=== PATIENT | female | born 1955 | race Caucasian/White ===

== ENCOUNTER → 2016-05-10 | Outpatient (CLI) | payer OTHER ==
[~2016-05-10] MED LIST: THROMBIN (RECOMBINANT) 5,000 UNIT VIAL TP ONE
--- NOTE | 2016-05-10 14:18 | MA ---
Diagnostic Digital Mammogram Left Breast Reason for examination: Follow up sonographically guided left breast biopsy. Technique: Craniocaudal and true lateral views were obtained. Additionally, oblique tomosynthesis is performed. Findings: The Suros marker is deployed at the biopsy site in the anterior left breast. The heterogene ous glandular tissue which is present posteriorly is well evaluated tomographically with no discrete mass identified. This region should be reevaluated with repeat mammographic in 6 months and the mammo graphic followup could also be employed for biopsy site followup. Impression: The Suros marker is deployed at the biopsy site. Follow up is recommended as detailed above. A verbal report was given to the patient. We will await pathologic results.
--- NOTE | 2016-05-11 07:49 | US ---
Vacuum-assisted Ultrasound-Guided Core Biopsy of the Left Breast Reason for examination: Evaluate hypoechoic hyperechoic nodular area at the 10 o'clock position of th e left breast anteriorly. Crosscutting Measure #226: Current tobacco user: no. Technique: Informed consent was obtained. Following sterile preparation and local anesthesia and util izing vacuum assistance and sonographic guidance, a 9 gauge Suros needle was advanced into the lesion . Multiple large core biopsies were obtained. The biopsy was performed with continuous real time sono graphic monitoring. A Suros marker was deployed to bennett the biopsy site. The needle was removed and hemostasis was obtained with manual compression. The patient tolerated the procedure well and no immediate complications occurred. A post biopsy mammogram will be obtained to evaluate marker deployment. Discharge instructions were given by the Radiology nurse. Impression: Successful sonographically guided large core biopsy of heterogeneous hyperechoic left dayanna ast nodule. Material was sent to Pathology. We will await results.
== END ==
LOC: FIMAGING 11:28
PROVIDERS: ATTEND Internal Medicine
PROC: 0HBU3ZX Excision of Left Breast, Percutaneous Approach, Diagnostic (ICD-10-PCS; principal; 2016-05-10)
DX: N60.12 Diffuse cystic mastopathy of left breast (principal); R92.0 Mammographic microcalcification found on diagnostic imaging of breast
CPT/HCPCS: G0206; G0279

== ENCOUNTER 2016-09-15 15:19 | Emergency (ER) | payer OTHER ==
--- NOTE | 2016-09-15 15:53 | EDPHY ---
H & P Time Seen by Provider: 09/15/16 15:34 HPI/ROS: CHIEF COMPLAINT: "NOT FEELING RIGHT" HISTORY OF PRESENT ILLNESS: Patient is a 61-year-old female with multiple medical problems including fibromyalgia and chronic fatigue syndrome and anxiety who presents to the emergency department with multiple complaints. She states that on Tuesday she ran out of [employer] and was concerned that her symptoms may be secondary to anxiety. On Tuesday she was working in the sun. She got "too hot" and developed a typical migraine headache. Since Tuesday she has had intermittent migraine headaches as well as lightheadedness and dizziness. She denies any chest pain or shortness of breath. She developed nausea on Tuesday and then reports "I waited 3 days to vomit until Tuesday. Patient feels as though she may be developing a headache at this time. She states her headaches are typically on the right and she has had them since 8 years old. Her headache symptoms have been consistent with her previous episodes. She has had no recent head trauma neck pain. She states she has had episodes of feeling too hot as well as dizziness since April. Approximately once a month she has an episode of feeling as though she can't walk in a straight line. She denies any ataxia at this time. No weakness or numbness. No visual change. REVIEW OF SYSTEMS: My complete review of systems is negative except as mentioned in the HPI. Past Medical/Surgical History: Includes insomnia, diabetes, migraine, hypothermia, fibromyalgia, chronic fatigue syndrome, Past surgical history: Includes gallbladder surgery, infertility, endoscopy perforation Social history: The patient does not smoke. She does not use alcohol. Smoking Status: Never smoked Physical Exam: Vitals noted GENERAL: Well-appearing, in no acute distress, alert. HEENT: Eyes normal to inspection, normal pharynx, no signs of dehydration. NECK: No thyromegaly, no lymphadenopathy, supple. RESPIRATORY: Clear to auscultation bilaterally, no rales, rhonchi or wheezing. CVS: Regular rate and rhythm, no rubs, murmurs, or gallops. ABDOMEN: Soft, nontender, nondistended, no organomegaly. BACK: Normal to inspection, no CVA tenderness. SKIN: Normal color, no rash, warm, dry. No pallor. EXTREMITIES: No pedal edema, no calf tenderness, no Homans sign or cords, no joint swelling. NEURO/PSYCH: Higher functions: Alert and Oriented x3. Normal speech and cognition. Normal mood and affect. Cranial nerves: Normal as tested. Cerebellar: Normal as tested. Good finger to nose, good [id number], normal gait. Peripheral exam: Normal motor exam. Normal sensation. Normal reflexes. Constitutional: Initial Vital Signs Temperature (C) 36.4 C 09/15/16 15:20 Heart Rate 70 09/15/16 15:20 Respiratory Rate 20 09/15/16 15:20 Blood Pressure 109/84 H 09/15/16 15:20 O2 Sat (%) 93 09/15/16 15:20 O2 Delivery Mode Room Air Allergies/Adverse Reactions: amoxicillin trihydrate [From Augmentin] Allergy (Intermediate, Verified 16:32) Other-Enter Comments potassium clavula *RETIRED-01/10/12 [From Augmentin] Allergy (Intermediate, Verified 04/29/15 16:32) Other-Enter Comments Home Medications: Medication Instructions Recorded MIGERGOT SUPPOSITORY 05/01/09 ESOMEPRAZOLE MAG TRIHYDRATE mg PO 07/20/10 [Nexium] LEVOTHYROXINE SODIUM [SYNTHROID] 07/20/10 clonAZEPAM [Klonopin] 0.25 mg PO 07/20/10 Zolpidem Tartrate [Ambien 10 mg] 10 mg PO HS 02/17/12 Trazodone HCl 100 mg PO 02/22/12 hydrOXYzine HCL [Hydroxyzine HCl] 25 mg PO 02/22/12 metFORMIN HCL [Glucophage] 500 mg PO DAILY #30 tab 06/04/13 Ranitidine HCl 08/15/14 traMADOL 08/15/14 Atorvastatin Calcium 05/27/15 Duloxetine HCl 05/27/15 Medical Decision Making - Diagnostics Imaging Results: Imaging Impressions Head CT 09/15/16 15:57 Impression: 1. No acute intracranial findings. 2. Scattered nonspecific white matter hypodensities. These are slightly more prominent than expected for age for chronic microvascular ischemic gliosis. These could be related to sequela of migraines, vasculitis, or other etiology. If symptoms persist and clinical suspicion warrants, consider MRI. Findings discussed with Mirian Gonzalez M.D., on September 15, 2016 at 1655 hours. E:NW/amm ED Course/Re-evaluation: In the emergency department I discussed possible etiologies with the patient. I answered all her questions. An IV was placed. Laboratory studies, EKG and head CT were ordered. EKG shows normal sinus rhythm, normal rate, normal axis, normal intervals. There are no ST or T-wave abnormalities. EKG is normal as interpreted by me. Head CT: No acute disease. Please refer the dictated report by Dr. Egan. Reviewed the patient's laboratory studies. Patient had a mildly elevated creatinine and BUN. I compared this with previous values. It is higher than typical. Patient's white count is minimally elevated. She is not anemic. TSH is 2.0. Patient's troponin is negative. I discussed the result with the patient. I answered all her questions. She is given warnings prior to leaving. She will continue to hydrate. She will follow up with the primary care physician in 2 days to have a recheck of her creatinine and labs. She felt comfortable with this plan. She was given warnings prior to leaving. She will return with worsening symptoms. Differential Diagnosis: My differential includes but is not limited to CVA, TIA, electrolyte abnormality , sugar abnormality, ACS, acute SC, chronic fatigue syndrome, fibromyalgia, hypothyroidism - Data Points Laboratory Results: Laboratory Results 09/15/16 16:08 09/15/16 16:08 09/15/16 09/15/16 16:08 16:08 WBC 9.96 10^3/uL H 10^3/uL (3.80-9.50) RBC 4.76 10^6/uL 10^6/uL (4.18-5.33) Hgb 13.5 g/dL g/dL (12.6-16.3) Hct 40.4 % % (38.0-47.0) MCV 84.9 fL fL (81.5-99.8) MCH 28.4 pg pg (27.9-34.1) MCHC 33.4 g/dL g/dL (32.4-36.7) RDW 13.2 % % (11.5-15.2) Plt Count 307 10^3/uL 10^3/uL (150-400) MPV 9.5 fL fL (8.7-11.7) Neut % (Auto) 46.1 % % (39.3-74.2) Lymph % (Auto) 41.6 % % (15.0-45.0) [place] % (Auto) 6.6 % % (4.5-13.0) Eos % (Auto) 4.3 % % (0.6-7.6) Baso % (Auto) 1.2 % % (0.3-1.7) Nucleat RBC Rel Count 0.0 % % (0.0-0.2) Absolute Neuts (auto) 4.59 10^3/uL 10^3/uL (1.70-6.50) Absolute Lymphs (auto) 4.14 10^3/uL H 10^3/uL (1.00-3.00) Absolute Monos (auto) 0.66 10^3/uL 10^3/uL (0.30-0.80) Absolute Eos (auto) 0.43 10^3/uL H 10^3/uL (0.03-0.40) Absolute Basos (auto) 0.12 10^3/uL H 10^3/uL (0.02-0.10) Absolute Nucleated RBC 0.00 10^3/uL 10^3/uL (0-0.01) Immature Gran % 0.2 % % (0.0-1.1) Immature Gran # 0.02 10^3/uL 10^3/uL (0.00-0.10) Sodium 137 mEq/L mEq/L (134-144) Potassium 4.6 mEq/L mEq/L (3.5-5.2) Chloride 104 mEq/L mEq/L (97-110) Carbon Dioxide 20 mEq/l L mEq/l (22-31) Anion Gap 13 mEq/L mEq/L (8-16) BUN 25 mg/dL H mg/dL (7-23) Creatinine 1.5 mg/dL H mg/dL (0.6-1.0) Estimated GFR 35 Glucose 110 mg/dL H mg/dL (70-100) Calcium 10.0 mg/dL mg/dL (8.5-10.4) Troponin I < 0.012 ng/mL ng/mL (0-0.034) TSH 2.000 uIU/mL uIU/mL (0.465-4.680) Departure - Departure Disposition: Home, Routine, Self-Care Clinical Impression: Lightheadedness, Dizziness Condition: Good Instructions: Lightheadedness (ED), Dizziness (ED) Additional Instructions: Return with increasing weakness, dizziness, vomiting, chest pain or any other concerns. You need close follow-up with your primary care physician to recheck her laboratory studies. Referrals: KIRSTIE DEVINE [[facility]] - 1-2 days without fail
--- NOTE | 2016-09-15 16:05 | CPEKG ---
Heart Rate: 69 RR Interval: 870 P-R Interval: 172 QRSD Interval: 76 QT Interval: 392 QTC Interval: 420 P Moriarty: 54 QRS Moriarty: 42 T Wave Moriarty: 40 EKG Severity - NORMAL ECG - EKG Impression: SINUS RHYTHM Electronically Signed By: Mirian Gonzalez 15-Sep-2016 22:57:50
[2016-09-15 16:17] LABS: % IMMATURE GRANULYOCYTES 0.2 % (0.0-1.1); ABSOLUTE IMMATURE GRANULOCYTES 0.02 10^3/uL (0.00-0.10); ADD DIFF? NO; HEMATOCRIT 40.4 % (38.0-47.0); HEMOGLOBIN 13.5 g/dL (12.6-16.3); MEAN CELL HEMOGLOBIN 28.4 pg (27.9-34.1); MEAN CELL HEMOGLOBIN CONCENTR. 33.4 g/dL (32.4-36.7); MEAN CELL VOLUME 84.9 fL (81.5-99.8); MEAN PLATELET VOLUME 9.5 fL (8.7-11.7); PLATELET COUNT 307 10^3/uL (150-400); RED BLOOD CELL COUNT 4.76 10^6/uL (4.18-5.33); RED CELL DISTRIBUTION WIDTH 13.2 % (11.5-15.2)
[2016-09-15 16:18] LABS: ADD MORPH? NO; ADD SCAN? NO; ATYPICAL LYMPHOCYTE FLAG 0 (0-99); FRAGMENT RBC FLAG 0 (0-99); LEFT SHIFT FLG 0 (0-99); LIPEMIA HEMOLYSIS FLAG 80 (0-99); PLATELET CLUMPS FLAG 0 (0-99)
[2016-09-15 16:29] LABS: ANION GAP 13 mEq/L (8-16); CARBON DIOXIDE 20 mEq/l (22-31); CHLORIDE 104 mEq/L (97-110); CREATININE 1.5 mg/dL (0.6-1.0); GLOMERULAR FILTRATION RATE 35; GLUCOSE 110 mg/dL (70-100); POTASSIUM 4.6 mEq/L (3.5-5.2); SODIUM 137 mEq/L (134-144)
[2016-09-15 16:41] LABS: TROPONIN I < 0.012 ng/mL (0-0.034)
[2016-09-15 17:33] VITALS: BP 121/81; PULSE 74; RESP 16; TEMP 98.1; O2SAT 94
== END 2016-09-15 17:34 | disposition home or self-care (01) ==
DX: R42 Dizziness and giddiness (principal); E11.9 Type 2 diabetes mellitus without complications; Z79.84 Long term (current) use of oral hypoglycemic drugs

== ENCOUNTER → 2017-04-11 | Outpatient (CLI) | payer OTHER | LOC: CIMAGING 11:08 | PROVIDERS: ATTEND Internal Medicine | DX: Z12.31 Encounter for screening mammogram for malignant neoplasm of breast (principal) | CPT/HCPCS: G0202 ==

== ENCOUNTER → 2017-08-02 | Outpatient (CLI) | payer OTHER | LOC: BMCIMAGING 12:13 | PROVIDERS: ATTEND Family Medicine | DX: R05 Cough (principal) ==

== ENCOUNTER 2018-03-29 12:51 | Inpatient (IN) | payer OTHER ==
--- NOTE | 2018-03-29 13:38 | EDPHY ---
H & P Smoking Status: Never smoked Time Seen by Provider: 03/29/18 13:00 HPI/ROS: CLINICAL IMPRESSION: Closed left trimalleolar fracture ASSESSMENT/PLAN: This is a 62-year-old female with a history of type 2 diabetes, fibromyalgia, chronic fatigue syndrome, presents to the emergency department after she tripped going [place] and injured her left ankle. X- rays confirm a closed, unstable trimalleolar fracture. Doppler pulses intact, cap refill 2 sec bilaterally, no open wound. No proximal joint pain and x-rays of the knee are without acute abnormality. Patient is requesting surgery today. I discussed with Dr. Wadsworth to is able to address patient's injury this evening. Patient was kept NPO, placed in a 3 way lower extremity splint, and admitted to the hospitalist service given her multiple other comorbidities. Patient to see orthopedics tonight DIFFERENTIAL DX: Differential diagnosis includes but not limited to acute fracture, ankle dislocation, ligamentous injury ED PROCEDURES: Procedure: Splint placement. A posterior short-leg and sugar-tong splint applied to the left leg by facility maintenance technician, supervised by myself. After application of the splint I returned and re- examined the patient. The splint was adequately immobilizing the joint and distal to the splint the patient's circulation and sensation was intact. 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 She reports her foot was point in the opposite direction of her leg when she got up. No open wound. She has severe chronic neuropathy that she reports is unchanged. She states her foot now appears back in place after the area was wrapped by EMS. No prior orthopedic injury or surgery to this leg. She has right knee pain as well but states this feels no different than it always feels. No open wounds. She did not hit her head. 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 Neurological: No sensory loss from baseline PHYSICAL EXAM: General Appearance: Alert, oriented, appropriate for age, cooperative, NAD, well hydrated, non-toxic appearing, VSS, no hypoxia. Neurological: Alert and oriented x 3, normal sensation and strength of extremities Skin: Warm, dry, no rashes, no nodules on palpation. Musculoskeletal: Significant swelling noted to left ankle. Unable to palpate pedal and posterior tibialis pulses bilaterally. Doppler pulses intact, no open wound. Psoriatic lesions noted to left anterior lower leg. Unchanged sensory deficits from baseline MEDICAL DECISION MAKING: Patient was seen independently.Secondary supervising physician at time of evaluation was Dr. Nathan . Diagnosis: Closed unstable left trimalleolar fracture. New, requires workup Summary: See assessment and plan for summary of ED visit Independent visualization of images, tracing, or specimens yes. Discussed patient with another provider Dr. Wadsworth, Dr. Diego Patient Progress stable . (Siva Hernandez) Constitutional: Initial Vital Signs Temperature (C) 36.6 C 03/29/18 12:59 Heart Rate 76 03/29/18 12:59 Respiratory Rate 18 03/29/18 12:59 Blood Pressure 139/82 H 03/29/18 12:59 O2 Sat (%) 97 03/29/18 12:59 O2 Delivery Mode Room Air O2 (L/minute) 3 Allergies/Adverse Reactions: amoxicillin trihydrate [From Augmentin] Allergy (Intermediate, Verified 16:32) Other-Enter Comments potassium clavula *RETIRED-01/10/12 [From Augmentin] Allergy (Intermediate, Verified 04/29/15 16:32) Other-Enter Comments Home Medications: Medication Instructions Recorded DULoxetine [Cymbalta 60 MG (*)] 60 mg PO BID 03/29/18 Ergotamine Tartrate/Caffeine 1 each RC DAILY PRN 03/29/18 [Migergot Suppository] Esomeprazole Magnesium [Nexium] 20 mg PO BID 03/29/18 Gabapentin [Neurontin 100 MG (*)] 200 mg PO BID 03/29/18 Levocetirizine Dihydrochloride 5 mg PO DAILY PRN 03/29/18 [Xyzal] Levothyroxine [Synthroid 75 mcg 75 mcg PO DAILY06 03/29/18 (*)] Nadolol [Nadolol 20 mg (*)] 20 mg PO BID 03/29/18 Pseudoephedrine HCl [Sudafed 12 240 mg PO DAILY PRN 03/29/18 Hour 120mg (*)] Rosuvastatin Calcium [Crestor] 10 mg PO HS 03/29/18 Zolpidem Tartrate [Ambien 5MG (*)] 5 mg PO HS 03/29/18 clonazePAM [Klonopin (*)] 0.5 mg PO BID 03/29/18 hydrOXYzine HCL [Vistaril] 50 mg PO BID 03/29/18 metFORMIN HCL [Metformin HCl ER] 500 mg PO DAILY 03/29/18 traZODone [traZODONE 50MG (*)] 50 mg PO HS 03/29/18 MDM/Departure - MDM Medications Given: Acetaminophen (Tylenol) 650 mg PO Q4HRS PRN PRN Reason: Pain, Mild/Fever, Can Take PO Stop: 09/25/18 14:18 Last Admin: 03/31/18 03:40 Dose: 650 mg Acetaminophen/Aspirin/Caffeine (Excedrin Tablet) 1 each PO Q6HRS PRN PRN Reason: Headache Stop: 09/26/18 13:39 Last Admin: 03/30/18 20:48 Dose: 1 each Clonazepam (Klonopin) 0.5 mg PO BID [facility] Stop: 09/25/18 20:59 Last Admin: 03/31/18 09:03 Dose: 0.5 mg Duloxetine HCl (Cymbalta) 60 mg PO BID [facility] Stop: 09/25/18 20:59 Last Admin: 03/31/18 09:02 Dose: 60 mg Furosemide (Lasix) 40 mg PO DAILY [facility] Stop: 09/26/18 13:59 Last Admin: 03/31/18 09:02 Dose: 40 mg Gabapentin (Neurontin) 200 mg PO BID [facility] Stop: 09/25/18 20:59 Last Admin: 03/31/18 09:02 Dose: 200 mg Hydromorphone HCl (Dilaudid) 0.2 - 0.4 mg IVP Q1H PRN PRN Reason: Pain, Severe Unable to Take PO Stop: 04/08/18 19:50 Last Admin: 03/31/18 06:07 Dose: 0.4 mg Hydroxyzine HCl (Hydroxyzine Hcl) 50 mg PO BID [facility] Stop: 09/25/18 20:59 Last Admin: 03/31/18 09:03 Dose: 50 mg Insulin Human Lispro (Humalog Lispro) 0 unit SC TIDMEAL B[facility]AR PRN Reason: Protocol Stop: 09/25/18 17:59 Last Admin: 03/31/18 13:12 Dose: Not Given Levothyroxine Sodium (Synthroid) 75 mcg PO DAILY06 [facility] Stop: 09/26/18 05:59 Last Admin: 03/31/18 05:24 Dose: 75 mcg Methocarbamol (Robaxin) 750 mg PO QID PRN PRN Reason: muscle spasms Stop: 09/27/18 10:13 Last Admin: 03/31/18 13:24 Dose: 750 mg Nadolol (Nadolol) 20 mg PO BID [facility] Stop: 09/25/18 20:59 Last Admin: 03/31/18 09:03 Dose: 20 mg Oxycodone HCl (Oxycodone Ir) 5 - 10 mg PO Q3HRS PRN PRN Reason: Pain, Severe Able to Take PO Stop: 04/08/18 14:18 Last Admin: 03/31/18 11:54 Dose: 10 mg Pantoprazole Sodium (Protonix) 40 mg PO BID [facility] Stop: 09/25/18 20:59 Last Admin: 03/31/18 09:02 Dose: 40 mg Rosuvastatin Calcium (Crestor) 10 mg PO HS [facility] Stop: 09/25/18 20:59 Last Admin: 03/30/18 20:21 Dose: 10 mg Trazodone HCl (Trazodone) 50 mg PO HS [facility] Stop: 09/25/18 20:59 Last Admin: 03/30/18 20:21 Dose: 50 mg Zolpidem Tartrate (Ambien) 5 mg PO HS [facility] Stop: 09/25/18 20:59 Last Admin: 03/30/18 20:21 Dose: 5 mg Discontinued Medications Albuterol (Proventil Neb) 3 ml IH Q10M PRN PRN Reason: PACU, Wheezing Stop: 03/30/18 01:36 Last Admin: 03/30/18 00:30 Dose: 3 ml Bupivacaine HCl (Sensorcaine 0.5% Vial) Confirm Administered Dose 30 ml .ROUTE .STK-MED ONE Stop: 03/30/18 00:14 Last Admin: 03/30/18 00:15 Dose: 15 ml Hydromorphone HCl (Dilaudid) 0.5 mg IVP EDNOW ONE Stop: 03/29/18 14:00 Last Admin: 03/29/18 14:47 Dose: 0.5 mg Hydromorphone HCl (Dilaudid) 0.2 - 0.4 mg IVP Q4HRS PRN PRN Reason: Pain, Severe Unable to Take PO Stop: 04/08/18 14:18 Last Admin: 03/29/18 18:53 Dose: 0.2 mg Sodium Chloride (Ns) 1,000 mls @ 0 mls/hr IV EDNOW ONE; Wide Open PRN Reason: Protocol Stop: 03/29/18 14:00 Last Admin: 03/29/18 14:47 Dose: 1,000 mls Cefazolin Sodium/Dextrose (Ancef) 100 mls @ 200 mls/hr IV ONCALL ONE PRN Reason: Protocol Stop: 03/29/18 21:09 Last Admin: 03/29/18 22:45 Dose: 100 mls Cefazolin Sodium/Dextrose (Ancef) 100 mls @ 200 mls/hr IV Q8H [facility]AR PRN Reason: Protocol Stop: 03/30/18 15:29 Last Admin: 03/30/18 14:20 Dose: 100 mls Midazolam HCl (Versed) 4 mg IVP ONCALL ONE Stop: 03/29/18 22:51 Last Admin: 03/29/18 22:52 Dose: 4 mg ED Course/Re-evaluation: I did not see this patient while she was in the emergency department. However her care was discussed with the PA while the patient was in the department. I agree with treatment plan and management (Don Nathan) - Depart Disposition: [facility] ([place], [place]) Inpatient Acute Clinical Impression: Trimalleolar fracture of ankle, closed Qualifiers: Encounter type: initial encounter Laterality: left Qualified Code(s): S82.852A - Displaced trimalleolar fracture of left lower leg, initial encounter for closed fracture Condition: Good
[2018-03-29] MEDS ORDERED: HYDROmorphONE/DILAUDID 2 MG/ML INJ IVP ONE (13:59)
[2018-03-29] MEDS ORDERED: NS 1,000 ML IV ONE (13:59)
[2018-03-29] MEDS ORDERED: ONDANSETRON 4 MG/2 ML VIAL IVP PRN (14:19)
[2018-03-29] MEDS ORDERED: ONDANSETRON DISINTEGRATING 4 MG TAB PO PRN (14:19)
[2018-03-29] MEDS ORDERED: PSEUDOEPHEDRINE HCL 120 MG EXT REL TAB PO PRN (15:27)
[2018-03-29] MEDS ORDERED: D50W 25 GM/50 ML SYR IVP PRN (15:47)
--- NOTE | 2018-03-29 15:55 | PDGENHP ---
History and Physical - Chief Complaint fall, ankle pain - History of Present Illness 62yo F with chronic fatigue syndrome, fibromyalgia presents after a mechanical fall. 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 She noticed that her left ankle was pointing in a different direction than the rest of her leg. She was rather shocked but not in that much pain. She denies headstrike or LOC. Upon EMS arrival her ankle was not dislocated. She was brought to the ED where an x-ray showed a trimalleolar fracture. She was splinted in the ED with plans for surgery this evening. She denies drinking any etoh or taking any additional centrally acting medications this morning than normal. Denies any infectious symptoms. However, she is now endorsing some neck and right hip pain. History Information - Allergies/Home Medication List Allergies/Adverse Reactions: amoxicillin trihydrate [From Augmentin] Allergy (Intermediate, Verified 16:32) Other-Enter Comments potassium clavula *RETIRED-01/10/12 [From Augmentin] Allergy (Intermediate, Verified 04/29/15 16:32) Other-Enter Comments Home Medications: DULoxetine [Cymbalta 60 MG (*)] 60 mg PO BID 03/29/18 [Last Taken Unknown] Ergotamine Tartrate/Caffeine [Migergot Suppository] 1 each RC DAILY PRN [Last Taken Unknown] Esomeprazole Magnesium [Nexium] 20 mg PO BID 03/29/18 [Last Taken Unknown] Gabapentin [Neurontin 100 MG (*)] 200 mg PO BID 03/29/18 [Last Taken Unknown] Levocetirizine Dihydrochloride [Xyzal] 5 mg PO DAILY PRN 03/29/18 [Last Taken Unknown] Levothyroxine [Synthroid 75 mcg (*)] 75 mcg PO DAILY06 03/29/18 [Last Taken Unknown] Nadolol [Nadolol 20 mg (*)] 20 mg PO BID 03/29/18 [Last Taken Unknown] Pseudoephedrine HCl [Sudafed 12 Hour 120mg (*)] 240 mg PO DAILY PRN 03/29/18 [ Last Taken Unknown] Rosuvastatin Calcium [Crestor] 10 mg PO HS 03/29/18 [Last Taken Unknown] Zolpidem Tartrate [Ambien 5MG (*)] 5 mg PO HS 03/29/18 [Last Taken 03/28/18] clonazePAM [Klonopin (*)] 0.5 mg PO BID 03/29/18 [Last Taken 03/29/18] hydrOXYzine HCL [Vistaril] 50 mg PO BID 03/29/18 [Last Taken Unknown] metFORMIN HCL [Metformin HCl ER] 500 mg PO DAILY 03/29/18 [Last Taken Unknown] traZODone [traZODONE 50MG (*)] 50 mg PO HS 03/29/18 [Last Taken Unknown] I have personally reviewed and updated: family history, medical history, social history, surgical history - Past Medical History Additional medical history: chronic fatigue syndrome, fibromyalgia, type 2 diabetes (recently taken off metformin due to GI side effects), GERD, insomnia, HLD, depression/anxiety, migraines, chronic neuropathy - Surgical History Additional surgical history: cholecystectomy - Family History Additional family history: strong family history of diabetes, no early CAD - Social History Smoking Status: Never smoked Alcohol Use: None Drug Use: None 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 Review of Systems Review of Systems: ROS: 10pt was reviewed & negative except for what was stated in HPI & below Physical Exam Physical Exam: Temp Pulse Resp BP Pulse Ox 36.3 C 66 19 142/89 H 96 03/29/18 15:11 03/29/18 15:11 03/29/18 15:11 03/29/18 15:11 03/29/18 15:11 Constitutional: no apparent distress, appears nourished, not in pain Eyes: PERRL, anicteric sclera, EOMI Ears, Nose, Mouth, Throat: moist mucous membranes, hearing normal, ears appear normal, no oral mucosal ulcers Cardiovascular: regular rate and rhythym, no murmur, rub, or gallop, No edema Respiratory: no respiratory distress, no rales or rhonchi, clear to auscultation Gastrointestinal: normoactive bowel sounds, soft, non-tender abdomen, no palpable masses Genitourinary: no bladder fullness, no bladder tenderness Skin: warm, normal color, no rashes or abrasions, no fluctuance, no induration, No mottled Musculoskeletal: full muscle strength, other (left ankle splinted, mild tenderness in posterior cervical area) Neurologic: AAOx3 Psychiatric: interacting appropriately, not anxious, not encephalopathic, thought process linear Lab Data & Imaging Review Visualized and Interpreted imaging results: Yes Interpretation: Ankle x-ray: displaced trimalleolar fracture with tibia subluxed anterolaterally, bony fragment along the plantar aspect of midfoot Assessment & Plan Assessment: 62yo F with chronic fatigue syndrome, fibromyalgia presents after a mechanical fall found to have closed trimalleolar fracture. She is being admitted for surgical management and is unable to ambulate. Plan: 1. Left trimalleolar fracture, possible midfoot fracture: Related to traumatic mechanical fall. Currently in splint. - Ortho consulted, planning on surgery with Dr Medrano this evening - IV dilaudid for pain control. Keep on continuous pulse oximetry in navid- operative period given her numerous centrally acting medications - PT/OT 2. Cervical neck pain: Neurologically intact - Check x-ray 3. Type 2 diabetes - Holding metformin, start SSI with regular BG checks 4. Chronic fatigue syndrome, fibromyalgia, neuropathic pain: Continue home duloxetine, gabapentin. 5. Depression, anxiety: Home duloxetine, klonopin PRN. 6. Insomnia: Home ambien. 7. HLD: On statin 8. GERD: On PPI, H2RA 9. Hypothyroid: Continue LT4 VTE ppx: SCDs Diet: NPO Code: full Dispo: Admit under observation for surgical management of ankle fracture.
[2018-03-29] MEDS: INSULIN LISPRO 100 UNIT/ML SC SCH (17:47)
[2018-03-29] MEDS: HYDROmorphONE/DILAUDID 1 MG/ML INJ IVP PRN ×3 (18:09→20:08)
[2018-03-29 18:40] LABS: PLATELET COUNT 410 10^3/uL (150-400)
[2018-03-29] MEDS ORDERED: ceFAZolin 2 GM/DEXTROSE 100 ML IV ONE (20:40)
[2018-03-29] MEDS: DULoxetine 60 MG CAP PO SCH (22:17)
[2018-03-29] MEDS: clonazePAM 0.5 MG TAB PO SCH (22:17)
[2018-03-29] MEDS: GABAPENTIN 100 MG CAP PO SCH (22:17)
[2018-03-29] MEDS: hydrOXYzine HCL 50 MG TAB PO SCH (22:18)
[2018-03-29] MEDS: NADOLOL 20 MG TAB PO SCH (22:19)
[2018-03-29] MEDS: PANTOPRAZOLE SODIUM 40 MG TAB PO SCH (22:19)
[2018-03-29] MEDS: traZODone 50 MG TAB PO SCH (22:20)
[2018-03-29] MEDS: ROSUVASTATIN CALCIUM 10 MG TAB PO SCH (22:20)
[2018-03-29] MEDS: ZOLPIDEM TARTRATE 5 MG TAB PO SCH (22:20)
--- NOTE | 2018-03-29 22:38 | POSTOPPROG ---
Post Op Note Date of Operation: 03/29/18 Surgeon: Abiel Wadsworth Anesthesia: GET(General Endotracheal) Pre-op Diagnosis: L trimalleolar ankle fx Post-op Diagnosis: same Procedure: ORIF L trimalleolar ankle fx Inf/Abcess present in the surg proc area at time of surgery?: No EBL: Minimal
[2018-03-29] MEDS ORDERED: MIDAZOLAM 2 MG/2 ML VIAL ONE ×2 (22:47)
[2018-03-29] MEDS ORDERED: MIDAZOLAM 2 MG/2 ML VIAL IVP ONE (22:50)
--- NOTE | 2018-03-29 22:50 | PDANEPAE ---
ANE History of Present Illness ANKLE ORIF ANE Past Medical History - Cardiovascular History Hx Hypertension: No Hx Arrhythmias: No Hx Chest Pain: No Hx Coronary Artery / Peripheral Vascular Disease: No Hx CHF / Valvular Disease: No Hx Palpitations: No Cardiovascular History Comment: HIGH CHOLESTEROL - Pulmonary History Hx COPD: No Hx Asthma/Reactive Airway Disease: Yes Hx Recent Upper Respiratory Infection: No Hx Oxygen in Use at Home: No Hx Sleep Apnea: No Sleep Apnea Screening Result - Last Documented: Negative Pulmonary History Comment: ALLERGY INDUCED ASTHMA, URI TREATED WITH ABX 12/2014 - Neurologic History Hx Cerebrovascular Accident: No Hx Seizures: No Hx Dementia: No Neurologic History Comment: MIGRANES - Endocrine History Hx Diabetes: Yes Hypothyroid: Yes Hyperthyroid: No Obesity: mild Endocrine History Comment: HYPOTHYROID. DM II - Renal History Hx Renal Disorders: No - Liver History Hx Hepatic Disorders: No Hepatic History Comment: GALLBLADDER DUCT BLOCKAGE - Neurological & Psychiatric Hx Hx Neurological and Psychiatric Disorders: No Neurological / Psychiatric History Comment: HX ANXIETY, DEPRESSION, INSOMNIA - Cancer History Hx Cancer: No Cancer History Comment: EARS BASAL CELL CARCINOMA - Congenital Disorder History Hx Congenital Disorders: No - GI History GERD: mild Hx Gastrointestinal Disorders: No Gastrointestinal History Comment: VOMITING AND NAUSEA. GERD. HX STOMACH & DUODENAL ULCERS. CHRONIC CONSTIPATION/DIARRHEA - Other Health History Other Health History: PSORIASIS. FIBROMYALGIA. CHRONIC FATIGUE SYNDROME - Chronic Pain History Chronic Pain: Yes - Surgical History Prior Surgeries: PERFORATED DUODENUM (FROM ENDOSCOPY). 2 LAP INFERTILITY SURG ANE Review of Systems Review of Systems: - Exercise capacity Exercise capacity: >=4 METS ANE Patient History - Allergies Allergies/Adverse Reactions: amoxicillin trihydrate [From Augmentin] Allergy (Intermediate, Verified 16:32) Other-Enter Comments potassium clavula *RETIRED-01/10/12 [From Augmentin] Allergy (Intermediate, Verified 04/29/15 16:32) Other-Enter Comments - Home Medications Home medications: home medication list seen and reviewed Home Medications: DULoxetine [Cymbalta 60 MG (*)] 60 mg PO BID 03/29/18 [Last Taken Unknown] Ergotamine Tartrate/Caffeine [Migergot Suppository] 1 each RC DAILY PRN [Last Taken Unknown] Esomeprazole Magnesium [Nexium] 20 mg PO BID 03/29/18 [Last Taken Unknown] Gabapentin [Neurontin 100 MG (*)] 200 mg PO BID 03/29/18 [Last Taken Unknown] Levocetirizine Dihydrochloride [Xyzal] 5 mg PO DAILY PRN 03/29/18 [Last Taken Unknown] Levothyroxine [Synthroid 75 mcg (*)] 75 mcg PO DAILY06 03/29/18 [Last Taken Unknown] Nadolol [Nadolol 20 mg (*)] 20 mg PO BID 03/29/18 [Last Taken Unknown] Pseudoephedrine HCl [Sudafed 12 Hour 120mg (*)] 240 mg PO DAILY PRN 03/29/18 [ Last Taken Unknown] Rosuvastatin Calcium [Crestor] 10 mg PO HS 03/29/18 [Last Taken Unknown] Zolpidem Tartrate [Ambien 5MG (*)] 5 mg PO HS 03/29/18 [Last Taken 03/28/18] clonazePAM [Klonopin (*)] 0.5 mg PO BID 03/29/18 [Last Taken 03/29/18] hydrOXYzine HCL [Vistaril] 50 mg PO BID 03/29/18 [Last Taken Unknown] metFORMIN HCL [Metformin HCl ER] 500 mg PO DAILY 03/29/18 [Last Taken Unknown] traZODone [traZODONE 50MG (*)] 50 mg PO HS 03/29/18 [Last Taken Unknown] - NPO status NPO Status: no food or drink >8 hours NPO Since - Liquids (Date): 03/29/18 NPO Since - Liquids (Time): 11:30 NPO Since - Solids (Date): 03/29/18 NPO Since - Solids (Time): 11:30 - Anes Hx Anes Hx: no prior problems - Smoking Hx Smoking Status: Never smoked - Alcohol Use Alcohol Use: None - Family Anes Hx Family Hx Anesthesia Complications: NONE ANE Labs/Vital Signs - Labs Result Diagrams: 03/29/18 18:20 03/29/18 18:20 - Vital Signs Blood Pressure: 122/83 Heart Rate: 75 Respiratory Rate: 22 O2 Sat (%): 95 Height: 170.18 cm Weight: 88.451 kg ANE Physical Exam - Airway Mallampati Score: Class 2 Mouth exam: normal dental/mouth exam - Pulmonary Pulmonary: no respiratory distress - Cardiovascular Cardiovascular: regular rate and rhythym - ASA Status ASA Status: II ANE Anesthesia Plan Anesthesia Plan: general endotracheal anesthesia, GA w LMA
[2018-03-29] MEDS ORDERED: DEXAMETHASONE 4 MG/ML VIAL ONE (22:56)
[2018-03-29] MEDS ORDERED: PROPOFOL 200 MG/20 ML VIAL ONE ×2 (22:56→23:13)
[2018-03-29] MEDS ORDERED: fentaNYL 250 MCG/5 ML INJ ONE (22:56)
[2018-03-29] MEDS ORDERED: KETOROLAC 30 MG/1 ML SDV ONE (22:56)
[2018-03-29] MEDS ORDERED: LIDOCAINE 2% 5 ML SDV ONE (22:56)
[2018-03-29] MEDS ORDERED: ONDANSETRON 4 MG/2 ML VIAL ONE (22:56)
[2018-03-30] MEDS ORDERED: SUGAMMADEX SODIUM 200 MG/2 ML VIAL IVP ONE (00:09)
[2018-03-30] MEDS ORDERED: BUPIVACAINE 0.5% 30 ML SDV ONE (00:13)
[2018-03-30] MEDS ORDERED: NALOXONE HCL 0.4 MG/ML INJ IVP PRN (00:36)
[2018-03-30] MEDS ORDERED: fentaNYL 100 MCG/2 ML INJ IVP PRN (00:36)
[2018-03-30] MEDS ORDERED: ONDANSETRON 4 MG/2 ML VIAL IVP PRN (00:36)
[2018-03-30] MEDS ORDERED: HYDROmorphONE/DILAUDID 2 MG/ML INJ IVP PRN (00:36)
[2018-03-30] MEDS ORDERED: ALBUTEROL 3 ML DEYVIAL IH PRN (00:36)
--- NOTE | 2018-03-30 00:38 | POSTANESTH ---
Post Anesthetic Evaluation Cardiovascular Status: Normal, Stable Respiratory Status: Normal, Stable Level of Consciousness/Mental Status: Can Participate in Eval Pain Control: Adequate, Prn Tx Ordered Nausea/Vomiting Control: Adequate, Prn Tx Ordered Complications Possibly Related to Anesthesia: None Noted
[2018-03-30] MEDS ORDERED: ALBUTEROL 3 ML DEYVIAL ONE (00:43)
[2018-03-30] MEDS: ACETAMINOPHEN 325 MG TAB PO PRN ×2 (02:42→09:23)
[2018-03-30] MEDS: LEVOTHYROXINE 75 MCG TAB PO SCH (06:11)
--- NOTE | 2018-03-30 08:01 | SOAPPROG ---
SOAP Progress Note Assessment/Plan: Assessment: Plan: Objective: Vital Signs Temp Pulse Resp BP Pulse Ox 36.4 C 78 14 111/71 91 L 03/30/18 07:47 03/30/18 07:47 03/30/18 07:47 03/30/18 07:47 03/30/18 07:47 Laboratory Results 03/29/18 18:20 03/29/18 18:20 03/29/18 03/30/18 03/31/18 05:59 05:59 05:59 Intake Total 2710 Output Total 800 Balance 1910 ICD10 Worksheet Patient Problems: Problems Problem Status Onset Trimalleolar fracture of ankle, closed Acute
[2018-03-30] MEDS: ceFAZolin 2 GM/DEXTROSE 100 ML IV SCH ×2 (08:08→14:20)
--- NOTE | 2018-03-30 08:11 | GCON ---
DATE OF CONSULTATION: 03/29/18 REASON FOR CONSULTATION: Left ankle injury. HISTORY RELATIVE TO CONSULTATION: The patient is a 62-year-old community ambulator who sustained a fall, twisting her ankle. She noted immediate pain, deformity, and inability to ambulate. She denies any previous problems relative to her ankle. PHYSICAL EXAMINATION: EXTREMITIES: There is moderate swelling diffusely throughout the ankle. She is able to flex and extend her toes. She has good capillary refill. IMAGING: Radiographs show evidence of a trimalleolar ankle fracture dislocation. ASSESSMENT: Left trimalleolar ankle fracture dislocation. PLAN: It is recommended that operative treatment consisting of open reduction, internal fixation be pursued. This will be scheduled pending OR availability. /[id number]/MODL MTDD
--- NOTE | 2018-03-30 08:11 | GOP ---
DATE OF OPERATION: 03/29/2018 SURGEON: Abiel Wadsworth MD ANESTHESIA: General. PREOPERATIVE DIAGNOSIS: Left trimalleolar ankle fracture. POSTOPERATIVE DIAGNOSIS: Left trimalleolar ankle fracture. PROCEDURE PERFORMED: 1. Open reduction, internal fixation, left trimalleolar ankle fracture with fixation of the posterior malleolar fragment. 2. Intraoperative use of fluoroscopy. FINDINGS: ESTIMATED BLOOD LOSS: Minimal. INDICATIONS: The patient is a 62-year-old who sustained a fall the day of surgery resulting in a left trimalleolar ankle fracture dislocation. Based on the displaced unstable nature of the injury, it was recommended that operative treatment consisting of open reduction, internal fixation be pursued. The patient acknowledged she understood the potential risks of the operation including, but not limited to bleeding, infection, neurovascular damage, loss of limb or limb function, malunion, nonunion, need for hardware removal, pain or functional limitations despite operative treatment and anesthetic risks. She acknowledged she understood the potential risks of the planned procedure and postoperative plan well, and had all questions answered prior to surgery. She gave consent for the operative procedure. DESCRIPTION OF PROCEDURE: The patient brought to the operating room after IV antibiotics were administered. She was placed in a supine position where general anesthetic was administered. A tourniquet was placed on her left calf. The patient was transferred to a right lateral decubitus position on the operating table with beanbag support, axillary roll, and padding of all bony prominences. The left lower leg was prepped and draped in standard sterile fashion. After marking the incision and Farooq wrap exsanguination, the tourniquet was inflated to 250. A longitudinal incision was made posterior to the lateral malleolus. Skin and subcutaneous tissue were sharply incised. Sharp dissection was carried anterior to the peroneal tendon, exposing the posterior lateral aspect of the fibula. A long oblique fracture was identified. Based on the nature of the fracture pattern, a posterior "antiglide " plating was performed. An 8 hole 1/3 tubular plate was placed along the posterior border of the distal fibula. Just proximal to the plane of the fracture, a 3.5 mm bicortical screw was placed in a posterior to anterior direction. As the screw was tightened the plate "reduced" the fracture. With the fracture held in an anatomically reduced position, 2.7 mm cortical screw was placed in lag fashion through the plate in a posterior to anterior direction. A supplemental 2.7 mm cortical screw was placed in the most distal hole in the plate directed distally with a supplemental 3.5 mm bicortical screw placed in the most proximal hole in the plate. Fluoroscopic views confirmed favorable reduction, hardware placement. Based on the osteoporotic nature of her bone supplemental lateral plating was additionally performed. A 6 hole 2.4 mm DC plate was placed along the lateral aspect of the distal fibula. Proximal and distal to the fracture two 2.4 mm cortical screws were placed through the plate in a lateral to medial direction. Fluoroscopic views confirmed there is favorable hardware placement with anatomic reduction. Attention was then directed toward the posterior malleolus. Through the same incision, dissection was carried in the interval between the peroneal and flexor hallucis longus tendons exposing the posterolateral aspect of the distal tibia. A provisional 0.25 mm Marisela wire was placed across the fracture. During K-wire placement, fine tuning of the reduction was accomplished with a periosteal elevator. A 2.7 mm cortical screw was placed in lag fashion in the posterolateral anterior medial direction. Reduction and hardware placement were confirmed fluoroscopically. Attention was directed toward closure. The fascia overlying the peroneal tendons was closed with 2-0 Vicryl suture in interrupted fashion. Subcutaneous tissue closed with 3-0 Vicryl suture in interrupted fashion. Skin closed with 4 -0 nylon interrupted sutures. The beanbag was deflated and the patient was transitioned into a supine position. Attention was directed toward the medial malleolus. An oblique incision was made along the medial aspect of the medial malleolus. Skin and subcutaneous tissue were sharply incised, taking care to avoid damage to the saphenous vein. Dissection was carried down to the anterior fracture fragment. The fracture was "reduced" with minimal manipulation. A 2.7 mm cortical screw was placed in lag fashion from the anterior tip of the medial malleolus across the fracture site. Fluoroscopic views confirmed favorable reduction. Attention was directed towards closure. The subcutaneous tissue was closed with 3-0 Vicryl suture in interrupted fashion. Skin was closed with 4-0 nylon interrupted sutures. The wounds were dressed with sterile Adaptic, 4 x 4 and Webril, and leg was placed in a below-knee splint. The patient tolerated the procedure well and was taken to the recovery room in stable condition postoperatively. All sponge, needle, instrument counts were reported as being correct. DRAINS: None. COMPLICATIONS: None. PLAN: The patient will be readmitted for medical management. She will be nonweightbearing on her operative extremity. /[id number]/MODL MTDD
[2018-03-30] MEDS: INSULIN LISPRO 100 UNIT/ML SC SCH ×3 (08:20→18:27)
[2018-03-30] MEDS ORDERED: CETIRIZINE 10 MG TAB PO PRN (09:00)
[2018-03-30] MEDS: clonazePAM 0.5 MG TAB PO SCH ×2 (09:19→20:21)
[2018-03-30] MEDS: NADOLOL 20 MG TAB PO SCH ×2 (09:20→20:20)
[2018-03-30] MEDS: GABAPENTIN 100 MG CAP PO SCH ×2 (09:20→20:21)
[2018-03-30] MEDS: hydrOXYzine HCL 50 MG TAB PO SCH ×2 (09:20→20:21)
[2018-03-30] MEDS: DULoxetine 60 MG CAP PO SCH ×2 (09:20→20:21)
[2018-03-30] MEDS: PANTOPRAZOLE SODIUM 40 MG TAB PO SCH ×2 (09:23→20:21)
[2018-03-30] MEDS ORDERED: FUROSEMIDE 20 MG TAB PO SCH (14:00)
[2018-03-30] MEDS: ACETAMINOPHEN/ASA/CAFFEINE 1 EACH TAB PO PRN ×2 (14:19→20:48)
[2018-03-30] MEDS: FUROSEMIDE 20 MG TAB PO SCH (14:28)
--- NOTE | 2018-03-30 14:45 | ASMTCMCOM ---
CM Note CM Note Notes: 03/30/2018 Case Management Note Pt admitted for Trimalleolar fracture of left ankle. PT assessed and is recommending SNF rehab. MD in agreement. Met w/pt to discuss options. 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 Requested referrals to [facility], [facility] and [facility] in [place]. Case Management d/c poc: SNF rehab pending acceptance and insurance authorization. Case Management will follow. Date Signed: 03/30/2018 02:44 PM Electronically Signed By:Briana Callahan RN
--- NOTE | 2018-03-30 15:53 | HOSPPROG ---
Hospitalist Progress Note Assessment/Plan: The patient is a 62-year-old female with PMH fibromyalgia, chronic fatigue syndrome who was admitted for an acute left ankle fracture and underwent surgical repair. ASSESSMENT/PLAN: Acute close left ankle trimalleolar fracture, s/p repair POD #1 L ankle pain, 2/2 above Bilateral ankle swelling, chronic Hyponatremia, mild Hypokalemia, mild -prn analgeics. -ISU/PT/OT. -NWB to L ankle -Request knee scooter -Pt w/o assistance at home, unsafe to DC to home. Request SNF placement for 1-2 weeks until her daughter can come home from college. -Check AM labs. -Give Lasix to help w/ ankle edema. VTE prophylaxis: SCD to RLE. Code Status: Full code Status: Switching to Inpatient for greater than 2 midnight stay. Disposition: [facility] with discharge in the next 1-3 days when patient gets placement ____ SUBJECTIVE: Today the pt c/o COMBS. Otherwise feels ok. OBJECTIVE: Physical Exam: General: The patient is a female who is alert and in no acute distress. HEENT: normocephalic, extraocular movements intact, conjunctivae clear. Mucous membranes moist. Neck: trachea midline, no visible masses. Abd: soft and nondistended. Musculoskeletal: Normal muscle tone/bulk. Left ankle dressing/cast CDI Neuro: cranial nerves II XII grossly intact. Intact gross motor and sensory function. Psych: Appropriate mood and appropriate affect. Skin: No pallor. No petechiae. Heme/lymph: +1 pitting peripheral edema right ankle. Labs/Imaging/Other Tests: Personally reviewed/interpreted. C-spine x-ray-1. Suboptimal examination. 2. Recommend CT cervical spine to exclude occult fracture since C7 and T1 vertebral bodies as well as odontoid are not well evaluated on this limited study. Left ankle x-ray-1. Displaced trimalleolar fracture, with tibia subluxed anterolaterally. 2. Bony fragment along the plantar aspect of the midfoot probably represents an additional midfoot fracture. Objective: Vital Signs Temp Pulse Resp BP Pulse Ox 37.1 C 84 13 117/60 92 03/30/18 15:46 03/30/18 15:46 03/30/18 15:46 03/30/18 15:46 11/29/18 15:46 Laboratory Results 03/29/18 18:20 03/29/18 18:20 03/29/18 03/30/18 03/31/18 05:59 05:59 05:59 Intake Total 2710 Output Total 800 Balance 1910 ICD10 Worksheet Patient Problems: Problems Problem Status Onset Trimalleolar fracture of ankle, closed Acute
--- NOTE | 2018-03-30 17:36 | PDMN ---
Medical Necessity Medical necessity: MCG: S100 ankle fracture: closed, or open reduction, ( ORIF ) F: OP: ORIF L trimalleolar fracture with fixation of posterior malleolar fragment- changed to INPT 03/30 for ongoing monitoring, pt unsafe to return home, lives alone, NWB, >2MN
[2018-03-30] MEDS: ZOLPIDEM TARTRATE 5 MG TAB PO SCH (20:21)
[2018-03-30] MEDS: ROSUVASTATIN CALCIUM 10 MG TAB PO SCH (20:21)
[2018-03-30] MEDS: traZODone 50 MG TAB PO SCH (20:21)
[2018-03-31] MEDS: ACETAMINOPHEN 325 MG TAB PO PRN (03:40)
[2018-03-31] MEDS: oxyCODONE IR 5 MG TAB PO PRN ×6 (04:46→19:18)
[2018-03-31] MEDS: LEVOTHYROXINE 75 MCG TAB PO SCH (05:24)
[2018-03-31] MEDS: HYDROmorphONE/DILAUDID 1 MG/ML INJ IVP PRN (06:07)
[2018-03-31] MEDS: GABAPENTIN 100 MG CAP PO SCH ×2 (09:02→20:31)
[2018-03-31] MEDS: DULoxetine 60 MG CAP PO SCH ×2 (09:02→20:31)
[2018-03-31] MEDS: PANTOPRAZOLE SODIUM 40 MG TAB PO SCH ×2 (09:02→20:32)
[2018-03-31] MEDS: FUROSEMIDE 20 MG TAB PO SCH (09:02)
[2018-03-31] MEDS: NADOLOL 20 MG TAB PO SCH ×2 (09:03→20:32)
[2018-03-31] MEDS: hydrOXYzine HCL 50 MG TAB PO SCH ×2 (09:03→20:31)
[2018-03-31] MEDS: INSULIN LISPRO 100 UNIT/ML SC SCH ×3 (09:03→17:56)
[2018-03-31] MEDS: clonazePAM 0.5 MG TAB PO SCH ×2 (09:03→20:32)
[2018-03-31] MEDS: METHOCARBAMOL 750 MG TAB PO PRN ×2 (13:24→20:33)
--- NOTE | 2018-03-31 14:52 | ASMTCMCOM ---
CM Note CM Note Notes: Financial counseling met with pt this morning as pt has inadequate insurance, seemingly only covering preventive care, not covering this hospital visit let alone SNF or HHC. Pt is very overwhelmed. Spoke with pt and her friend Elkin who is a distribution operations manager ([phone]) at length about d/c planning. Pt has information from [facility] and [facility] about private pay SNF and also will call agencies for skilled and unskilled care in the home. CM to re-visit with pt to see what pt wants to do for d/c. Pt provided [employer]. D/c plan of care: Private pay SNF vs. Home with private pay skilled/unskilled care Date Signed: 03/31/2018 02:51 PM Electronically Signed By:SHAN De La Fuente
--- NOTE | 2018-03-31 18:13 | SOAPPROG ---
SOAP Progress Note Assessment/Plan: Assessment: Plan: 03/31/18 18:11 S/P ORIF trimalleolar ankle fx Pain in ankle Limited ambulation Turner po Splint intact, no D/C Toes with + sensation, DF/PF Con't OOB/PT OK for D/C from Ortho standpoint when medically stable SNF vs home with assist Objective: Vital Signs Temp Pulse Resp BP Pulse Ox 36.5 C 79 16 113/71 94 03/31/18 16:08 03/31/18 16:08 03/31/18 16:08 03/31/18 16:08 03/31/18 16:08 03/30/18 03/31/18 04/01/18 05:59 05:59 05:59 Intake Total 990 Output Total 3529 1500 Balance -2820 -1500 ICD10 Worksheet Patient Problems: Problems Problem Status Onset Trimalleolar fracture of ankle, closed Acute
--- NOTE | 2018-03-31 18:48 | HOSPPROG ---
Hospitalist Progress Note Assessment/Plan: The patient is a 62-year-old female with PMH fibromyalgia, chronic fatigue syndrome who was admitted for an acute left ankle fracture and underwent surgical repair. ASSESSMENT/PLAN: Acute close left ankle trimalleolar fracture, s/p repair POD #2 L ankle pain, 2/2 above Bilateral ankle swelling, chronic Hyponatremia, mild Hypokalemia, mild -prn analgesics. -ISU/PT/OT. -NWB to L ankle. -Requested knee scooter. -Pt w/o assistance at home, unsafe to DC to home. Request SNF placement for 1-2 weeks until her daughter can come home from college. Payor source limited - pt has inquired about self-pay options for SNF and is still deciding today. -Lasix for ankle edema. -Check AM labs. VTE prophylaxis: SCD to RLE. Code Status: Full code Status: Switching to Inpatient for greater than 2 midnight stay. Disposition: [facility] with discharge when pt gets placement. She is unsafe to DC to home - high fall/injury risk. ____ SUBJECTIVE: Today the pt feels ok. +generally weak, needs assistance w/ basic ADLs. OBJECTIVE: Physical Exam: General: The patient is a female who is alert and in no acute distress. HEENT: normocephalic, extraocular movements intact, conjunctivae clear. Mucous membranes moist. Neck: trachea midline, no visible masses. Abd: soft and nondistended. Musculoskeletal: Normal muscle tone/bulk. Left ankle dressing/cast CDI Neuro: cranial nerves II XII grossly intact. Intact gross motor and sensory function. Psych: Appropriate mood and appropriate affect. Skin: No pallor. No petechiae. Labs/Imaging/Other Tests: Personally reviewed/interpreted. C-spine x-ray-1. Suboptimal examination. 2. Recommend CT cervical spine to exclude occult fracture since C7 and T1 vertebral bodies as well as odontoid are not well evaluated on this limited study. Left ankle x-ray-1. Displaced trimalleolar fracture, with tibia subluxed anterolaterally. 2. Bony fragment along the plantar aspect of the midfoot probably represents an additional midfoot fracture. Objective: Vital Signs Temp Pulse Resp BP Pulse Ox 36.5 C 79 16 113/71 94 03/31/18 16:08 03/31/18 16:08 03/31/18 16:08 03/31/18 16:08 03/31/18 16:08 03/30/18 03/31/18 04/01/18 05:59 05:59 05:59 Intake Total 990 Output Total 3700 1500 Balance -8570 -1500 ICD10 Worksheet Patient Problems: Problems Problem Status Onset Trimalleolar fracture of ankle, closed Acute
[2018-03-31] MEDS: ACETAMINOPHEN/ASA/CAFFEINE 1 EACH TAB PO PRN (19:15)
[2018-03-31] MEDS ORDERED: CEPACOL LOZENGE PO PRN (20:12)
[2018-03-31] MEDS: ROSUVASTATIN CALCIUM 10 MG TAB PO SCH (20:32)
[2018-03-31] MEDS: traZODone 50 MG TAB PO SCH (20:33)
[2018-03-31] MEDS: ZOLPIDEM TARTRATE 5 MG TAB PO SCH (20:33)
[2018-04-01] MEDS ORDERED: CALCIUM CARBONATE 500 MG CHEWABLE TAB PO PRN (01:05)
[2018-04-01] MEDS ORDERED: CALCIUM CARBONATE 500 MG CHEWABLE TAB PO ONE (01:08)
[2018-04-01] MEDS: ACETAMINOPHEN/ASA/CAFFEINE 1 EACH TAB PO PRN ×3 (01:10→17:59)
[2018-04-01 04:56] LABS: PLATELET COUNT 376 10^3/uL (150-400)
[2018-04-01] MEDS: LEVOTHYROXINE 75 MCG TAB PO SCH (05:44)
--- NOTE | 2018-04-01 06:53 | SOAPPROG ---
SOAP Progress Note Assessment/Plan: Assessment: Plan: 03/31/18 18:11 S/P ORIF trimalleolar ankle fx Pain in ankle Limited ambulation Turner po Splint intact, no D/C Toes with + sensation, DF/PF Con't OOB/PT OK for D/C from Ortho standpoint when medically stable SNF vs home with assist 04/01/18 06:49 Pain improving Slow improvement with PT Splint intact. NV unchanged OK for SNF transfer from ortho standpoint F/U 04/10/18. Call [phone] for appt Objective: Vital Signs Temp Pulse Resp BP Pulse Ox 36.6 C 78 14 111/77 98 04/01/18 00:00 04/01/18 00:00 04/01/18 00:00 04/01/18 00:00 04/01/18 00:00 Laboratory Results 04/01/18 04:17 04/01/18 04:17 03/31/18 04/01/18 04/02/18 05:59 05:59 05:59 Intake Total 990 350 Output Total 2315 7331 Balance -2710 -1525 ICD10 Worksheet Patient Problems: Problems Problem Status Onset Trimalleolar fracture of ankle, closed Acute
--- NOTE | 2018-04-01 06:54 | PDIAF ---
- Diagnosis Code Status: Full Code - Medication Management Discharge Medications: electronically signed and located in the Home Medication List. - Orders Wound Care Instructions: Keep splint clean, dry, intact Activity/Weight Bearing Restrictions: Non weight bearing operative extremity - Follow Up Care Current Providers and Referrals: Patient,NotPresent [Unknown] - As per Instructions Abiel Wadsworth MD [Medical Doctor] -
[2018-04-01] MEDS: GABAPENTIN 100 MG CAP PO SCH ×2 (07:53→21:26)
[2018-04-01] MEDS: PANTOPRAZOLE SODIUM 40 MG TAB PO SCH ×2 (07:54→21:26)
[2018-04-01] MEDS: FUROSEMIDE 20 MG TAB PO SCH (07:54)
[2018-04-01] MEDS: clonazePAM 0.5 MG TAB PO SCH ×2 (07:54→21:26)
[2018-04-01] MEDS: METHOCARBAMOL 750 MG TAB PO PRN ×3 (07:55→21:24)
[2018-04-01] MEDS: oxyCODONE IR 5 MG TAB PO PRN ×3 (07:55→15:04)
[2018-04-01] MEDS: NADOLOL 20 MG TAB PO SCH ×2 (07:56→21:24)
[2018-04-01] MEDS: hydrOXYzine HCL 50 MG TAB PO SCH ×2 (07:57→21:26)
[2018-04-01] MEDS: DULoxetine 60 MG CAP PO SCH ×2 (07:57→21:26)
[2018-04-01] MEDS: INSULIN LISPRO 100 UNIT/ML SC SCH ×3 (09:20→17:50)
[2018-04-01] MEDS ORDERED: PROTOCOL MAGNESIUM 1 DOSE IV PRN (09:53)
--- NOTE | 2018-04-01 09:58 | HOSPPROG ---
Hospitalist Progress Note Assessment/Plan: The patient is a 62-year-old female with PMH fibromyalgia, chronic fatigue syndrome who was admitted for an acute left ankle fracture and underwent surgical repair. Acute close left ankle trimalleolar fracture, s/p repair POD # 3. Followed by Dr. Wadsworth # left ankle pain secondary to above. Patient's recovery is hampered by the fact she has no insurance and we are working on a rehab plan for her. She has difficulty ambulating independently or transferring independently at this time. * Case management to work with patient regarding rehab needs * Medically ready for discharge once electrolytes stabilized # low magnesium. Re placed per protocol # hyperkalemia today recheck level discontinue all potassium supplements # fibromyalgia and chronic fatigue syndrome Status: Switching to Inpatient for greater than 2 midnight stay. Disposition: Med surge with discharge when pt gets placement. She is unsafe to DC to home - high fall/injury risk. Subjective: Complaining of intermittent pain which is quite severe in her left ankle. Patient new to me and chart reviewed. No chest pain or shortness of breath Objective: Vital Signs Temp Pulse Resp BP Pulse Ox 36.6 C 78 14 126/66 H 90 L 04/01/18 08:00 04/01/18 08:00 04/01/18 08:00 04/01/18 08:00 04/01/18 08:00 Laboratory Results 04/01/18 04:17 04/01/18 04:17 03/31/18 04/01/18 04/02/18 05:59 05:59 05:59 Intake Total 990 350 Output Total 3700 1875 Balance -2710 -1525 - Physical Exam Constitutional: no apparent distress, obese Eyes: PERRL Ears, Nose, Mouth, Throat: moist mucous membranes Cardiovascular: regular rate and rhythym Respiratory: no respiratory distress, clear to auscultation Gastrointestinal: soft, non-tender abdomen Genitourinary: no bladder fullness Skin: warm Musculoskeletal: other (Splint on left ankle) Neurologic: AAOx3 Psychiatric: interacting appropriately ICD10 Worksheet Patient Problems: Problems Problem Status Onset Trimalleolar fracture of ankle, closed Acute
[2018-04-01] MEDS ORDERED: MAGNESIUM SULF 2 GM/WATER 50 ML IV ONE (10:58)
[2018-04-01] MEDS: DOXYCYCLINE HYCLATE 100 MG CAP/TAB PO SCH (21:26)
[2018-04-01] MEDS: traZODone 50 MG TAB PO SCH (21:26)
[2018-04-01] MEDS: ROSUVASTATIN CALCIUM 10 MG TAB PO SCH (21:26)
[2018-04-01] MEDS ORDERED: MAGNESIUM HYDROXIDE 30 ML UDCUP PO PRN (21:48)
[2018-04-01] MEDS ORDERED: POLYETHYLENE GLYCOL 3350 17 GM PKT PO PRN (21:48)
[2018-04-01] MEDS ORDERED: LACTULOSE 20 GM/30 ML UDCUP PO PRN (21:48)
[2018-04-01] MEDS ORDERED: BISACODYL 10 MG SUPP PR PRN (21:48)
[2018-04-01] MEDS ORDERED: SENNOSIDES/DOCUSATE SODIUM TAB PO ONE (22:06)
[2018-04-01] MEDS: SENNOSIDES/DOCUSATE SODIUM TAB PO SCH (22:08)
[2018-04-01] MEDS: ZOLPIDEM TARTRATE 5 MG TAB PO SCH (22:10)
[2018-04-02] MEDS: LEVOTHYROXINE 75 MCG TAB PO SCH (06:13)
[2018-04-02] MEDS: METHOCARBAMOL 750 MG TAB PO PRN ×2 (06:13→12:54)
[2018-04-02] MEDS: oxyCODONE IR 5 MG TAB PO PRN ×2 (06:13→12:52)
[2018-04-02 08:06] VITALS: BP 111/74
[2018-04-02] MEDS: DULoxetine 60 MG CAP PO SCH (08:06)
[2018-04-02] MEDS: DOXYCYCLINE HYCLATE 100 MG CAP/TAB PO SCH (08:07)
[2018-04-02] MEDS: hydrOXYzine HCL 50 MG TAB PO SCH (08:07)
[2018-04-02] MEDS: NADOLOL 20 MG TAB PO SCH (08:07)
[2018-04-02] MEDS: SENNOSIDES/DOCUSATE SODIUM TAB PO SCH (08:08)
[2018-04-02] MEDS: FUROSEMIDE 20 MG TAB PO SCH (08:08)
[2018-04-02] MEDS: GABAPENTIN 100 MG CAP PO SCH (08:08)
[2018-04-02] MEDS: clonazePAM 0.5 MG TAB PO SCH (08:09)
[2018-04-02] MEDS: PANTOPRAZOLE SODIUM 40 MG TAB PO SCH (08:09)
[2018-04-02] MEDS ORDERED: MAGNESIUM SULF 1 GM/DEXTROSE 100 ML IV ONE (08:13)
[2018-04-02] MEDS: INSULIN LISPRO 100 UNIT/ML SC SCH ×2 (09:48→13:34)
--- NOTE | 2018-04-02 10:40 | PDIAF ---
- Diagnosis Diagnosis: ankle fracture/orif Code Status: Full Code - Medication Management [facility] Antibiotics: doxycycline Cytopathology Technologist Antibiotic Stop Date: 04/09/18 Discharge Medications: electronically signed and located in the Home Medication List. - Orders Services needed: Registered Nurse, Certified Binder Caser, Master Conventional Underwriter , Physical Therapy, Occupational Therapy Diet Recommendation: no restrictions on diet Diet Texture: Regular Texture Diet Wound Care Instructions: Keep splint clean, dry, intact Activity/Weight Bearing Restrictions: Non weight bearing operative extremity - Follow Up Care Current Providers and Referrals: Patient,NotPresent [Unknown] - As per Instructions Abiel Wadsworth MD [Medical Doctor] -
[2018-04-02] MEDS: ACETAMINOPHEN/ASA/CAFFEINE 1 EACH TAB PO PRN (12:53)
--- NOTE | 2018-04-02 18:37 | GDS ---
DIAGNOSES: 1. Trimalleolar fracture, status post open reduction, internal fixation by Dr. Wadsworth. 2. Dyslipidemia. 3. Fibromyalgia. 4. Diabetes, type 2. CONSULTATIONS: Orthopedics, Dr. Abiel Wadsworth PROCEDURES DONE: Open reduction, internal fixation left trimalleolar ankle fracture with fixation of the posterior malleolar fragment. HOSPITAL COURSE: The patient is a 62-year-old with the above medical issues who was admitted status post a fall in which she had a trimalleolar fracture. She was admitted and had surgery on 03/30/2018, by Dr. Wadsworth. The rest of her hospital stay was primarily postoperative care and management. Her me dical issues remained stable. She did develop a mild bronchitis during her hospital stay and was star rebecca on doxycycline. Chest x-ray revealed mild atelectasis and bronchitis. No obvious pneumonia. She w ill complete 7 to 10 days of doxycycline. CONDITION ON DISCHARGE: Good. Vital signs are stable. She is alert. She has pain in her left ankle, which still has a splint on it. DISCHARGE MEDICATIONS: Please see discharge medication form. FOLLOWUP: She will be discharged to [facility] rehab and will have ongoing followup with Dr. Wadsworth for her postoperative care. Total time spent with patient on day of discharge and coordination of care is 35 minutes. /[id number]/MODL
--- NOTE | 2018-04-06 15:37 | ASDISCHSUM ---
Discharge Information Plan Status:SNF Medically Cleared to Leave:04/01/2018 Discharge Date:04/02/2018 03:03 PM D/C Disposition:Retirement Facility ADT D/C Disposition:Retirement Facility Projected Discharge Date:03/31/2018 11:00 AM Transportation at D/C: Discharge Delay Reason: Follow-Up Date:03/31/2018 11:00 AM Discharge Slot: Final Diagnosis: Placement Information Referral Type:*Detention/SNF Referral ID:[id number] Provider Name:[facility] Address 1:[address] Address 2: City:[place] Selection Factors: State:[place] Patient Contact Information Contact Name:АЛЕКСАНДР Relationship:Sister Address:[address] City:[place] Alternate Phone: State/Zip Code:[place] [address] Email: Financial Information Financial Class:HMO and PPO Plans Primary Plan Desc:[address] Primary Plan Number:[id number] Secondary Plan Desc: Secondary Plan Number: Assessment Information LACE LACE Length of stay for Answers: 3 days current admission Comorbidities - select Answers: Diabetes (uncontrolled or all that apply controlled) Opioid dependence / Chronic pain Other Notes: HLD # of Emergency department Answers: 1-2 visits in the last 6 months Social determinants Answers: Mental health diagnosis (anxiety, depression, pers onality disorders, etc.) Score: 13 Date Signed: 04/06/2018 03:36 PM Electronically Signed By:Briana Callahan RN [facility] CM Progress Note CM Note CM Note Notes: 03/30/2018 Case Management Note Pt admitted for Trimalleolar fracture of left ankle. PT assessed and is recommending SNF rehab. in agreement. Met w/pt to discuss options. 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 Requested referrals to [facility], [facility] and [facility] in [place]. Case Management d/c poc: SNF rehab pending acceptance and insurance authorization. Case Management will follow. Date Signed: 03/30/2018 02:44 PM Electronically Signed By:Briana Callahan RN [facility] Progress Note CM Note CM Note Notes: Financial counseling met with pt this morning as pt has inadequate insurance, seemingly only covering preventive care, not covering this hospital visit let alone SNF or [facility]. Pt is very overwhelmed. Spoke with pt and her friend Elkin who is a senior brand manager ([phone]) at length about d/c planning. Pt has information from [facility] and [facility] about private pay SNF and also will call agencies for skilled and unskilled care in the home. CM to re-visit with pt to see what pt wants to do for d/c. Pt provided [employer]. D/c plan of care: Private pay SNF vs. Home with private pay skilled/unskilled care Date Signed: 03/31/2018 02:51 PM Electronically Signed By:SHAN De La Fuente Intervention Information
== END 2018-04-02 15:03 | DRG 493 ==
LOC: EDUNIT# → F3N 15:00 → OBSVTOIN 03-30 14:00
PROVIDERS: ADMIT Internal Medicine; ATTEND Internal Medicine
DX: S82.852A Displaced trimalleolar fracture of left lower leg, initial encounter for closed fracture (principal); M25.561 Pain in right knee; M54.2 Cervicalgia; W10.9XXA Fall (on) (from) unspecified stairs and steps, initial encounter; Y92.240 Courthouse as the place of occurrence of the external cause; E87.1 Hypo-osmolality and hyponatremia; E87.6 Hypokalemia; E83.42 Hypomagnesemia; J40 Bronchitis, not specified as acute or chronic; E11.9 Type 2 diabetes mellitus without complications; R53.82 Chronic fatigue, unspecified; E03.9 Hypothyroidism, unspecified; E78.5 Hyperlipidemia, unspecified; G43.909 Migraine, unspecified, not intractable, without status migrainosus; M79.7 Fibromyalgia; G47.00 Insomnia, unspecified; F41.8 Other specified anxiety disorders
CPT/HCPCS: 97116-GP; 97161-GP; 97165-GO; 97530-GO; 97530-GP; 97535-GO; C1713; G0378; J0690; J1100; J1170; J1815; J1885; J2250; J2405; J2704; J3010; J3475; J7613

== ENCOUNTER → 2018-10-16 | Outpatient (CLI) | payer OTHER | LOC: CIMAGING 11:17 ==

== ENCOUNTER → 2018-10-17 | Outpatient (CLI) | payer OTHER | LOC: BMCIMAGING 11:03 ==